=== PATIENT | female | born 1990 | race Caucasian/White ===

== ENCOUNTER → 2019-08-08 13:36 | Outpatient (CLI) | payer OTHER, SELFPAY ==
--- NOTE | 2019-08-08 13:54 | US_ITS ---
STUDY: FIRST TRIMESTER OBSTETRICAL ULTRASOUND REASON FOR EXAM: Female, 28 years old VAG BLEEDING FOR A WEEK- viability LMP: June 22, 2019. TECHNIQUE: Transvaginal TECHNICAL QUALITY: Adequate. PRIOR ULTRASOUND: None. FINDINGS: There is no demonstrated intrauterine gestational sac. There is no demonstrated yolk sac. The yolk sac measures . The placenta is non-visualized. There is no demonstrated embryo ( pole). The estimated gestation age (EGA) by LMP is 6 weeks, 5 days. The estimated date of delivery (JEFFRY) by LMP is March 28, 2020. The uterus measures 9 cm x 5.9 centimeters x 4.8 cm. The endometrium measures 9 mm. There is no demonstrated uterine fibroid. The cervix is closed. The right ovary was not visualized. The left ovary measures 2.6 cm x 2.5 cm x 1.3 cm. There is no left ovarian cyst. There is no visualized left adnexal mass or complex lesion. There is minimal fluid in the cul de sac. US/Transvaginal w/Preg US IMPRESSION: No intrauterine gestation is seen. Minimal free fluid in the cul-de-sac. Correlation with beta hCG and possible follow-up sonogram is recommended. Electronically Signed: Weston Wilkerson, at 15:59 EDT , Service support ,
[2019-08-08 16:47] LABS: hCG Titer Quant., Serum 441 mIU/mL (1-3)
== END ==
PROVIDERS: Referring Provider Obstetrics & Gynecology; Visit Provider Obstetrics & Gynecology
DX: O20.0 Threatened abortion (principal); Z3A.00 Weeks of gestation of pregnancy not specified
CPT/HCPCS: 36415; 76817; 84702; 86850; 86900; 86901

== ENCOUNTER → 2020-01-16 16:48 | Outpatient (CLI) | payer OTHER, SELFPAY ==
[2019-08-08 15:38] VITALS: BMI 25.4
[2020-01-16 17:35] LABS: hCG Titer Quant., Serum 762 mIU/mL (1-3)
== END ==
PROVIDERS: Referring Provider Obstetrics & Gynecology; Visit Provider Obstetrics & Gynecology
DX: O20.0 Threatened abortion (principal); Z3A.00 Weeks of gestation of pregnancy not specified
CPT/HCPCS: 36415; 84702

== ENCOUNTER → 2020-01-18 16:28 | Outpatient (CLI) | payer OTHER, SELFPAY ==
[2019-08-08 15:38] VITALS: BMI 25.4
[2020-01-18 18:29] LABS: hCG Titer Quant., Serum 1777 mIU/mL (1-3)
== END ==
PROVIDERS: Referring Provider Obstetrics & Gynecology; Visit Provider Obstetrics & Gynecology
DX: O20.0 Threatened abortion (principal)
CPT/HCPCS: 36415; 84702

== ENCOUNTER → 2020-02-09 16:07 | Outpatient (CLI) | payer OTHER, SELFPAY ==
[2020-02-09 14:43] VITALS: BMI 25.4
[2020-02-09 17:51] LABS: Absolute Lymphocyte Count 2.43 X10^3/uL (0.83-4.51); Absolute Neutrophil Count 7.2 X10^3/uL (2.0-7.7); Basophil# 0.03 X10^3/uL; Basophil% 0.3 % (0-1); Hematocrit 36.5 % (37-47); Lymphocyte # 2.43 X10^3/ul (4.0); Lymphocyte % 23.4 % (19-41); Mean Corp Hgb Conc 32.9 g/dL (32-36); Mean Corpuscular Hgb 29.1 pg (27.0-32.0); Mean Corpuscular Volume 88.4 fL (81-99); Mean Platelet Vol. 10.5 fl (6.2-12.0); Monocyte# 0.54 X10^3/uL; Monocyte% 5.2 % (0-10); NRBC Flagged by Analyzer 0 % (0-5); Neutrophil # 7.24 X10^3/uL (2.7-7.7); Neutrophil % 69.8 % (47-70); Platelet Count 252 K/mm3 (150-450); RBC Distribution Width CV 12.1 % (11.6-14.6); Red Blood Count 4.13 M/mm3 (4.2-5.4); White Blood Count 10.4 K/mm3 (4.4-11.0)
[2020-02-09 18:55] LABS: Amphetamine Urine VISTA NEGATIVE (<1000 ng/mL); Barbiturate Urine VISTA NEGATIVE (< 200 ng/mL); Benzodiazepine Urine VISTA NEGATIVE (< 200 ng/mL); Cocaine Urine VISTA NEGATIVE (< 300 ng/mL); Ecstacy Urine VISTA NEGATIVE (< 500 ng/mL); Methadone Urine VISTA NEGATIVE (< 300 ng/mL); PCP Urine VISTA NEGATIVE (< 25 ng/mL); THC Urine VISTA NEGATIVE (< 50 ng/mL); Vista UDS pH Range 6
[2020-02-10 15:16] LABS: HIV - WCH Non-Reactive (Nonreactive); Hepatitis B Surface Antigen Non-Reactive (Nonreactive); Hepatitis C Antibody Non-Reactive (Nonreactive); Rubella IgG 185.4 IU/mL
[2020-02-14 03:06] LABS: Chlamydia By Nucleic Acid AMP Negative (Negative)
[2020-02-14 09:43] LABS: Gonococcus By Nucleic Acid AMP Negative (Negative)
[2020-02-14 16:00] LABS: HPV APTIMA, High Risk Negative (Negative)
[2020-02-16 04:30] LABS: Rapid Plasmin Reagin (RPR) NONREACTIVE (NONREACTIVE)
== END ==
PROVIDERS: Referring Provider Obstetrics & Gynecology; Visit Provider Obstetrics & Gynecology
DX: Z34.80 Encounter for supervision of other normal pregnancy, unspecified trimester (principal); Z12.4 Encounter for screening for malignant neoplasm of cervix
CPT/HCPCS: 36415; 80307; 85025; 86592; 86703; 86762; 86803; 87086; 87088; 87340; 87491; 87591; 87624; 88175; G0145

== ENCOUNTER → 2020-06-29 13:11 | Outpatient (CLI) | payer OTHER, SELFPAY ==
[2020-05-31 10:54] VITALS: BMI 31.1
[2020-06-29 13:47] LABS: Absolute Lymphocyte Count 1.63 X10^3/uL (0.83-4.51); Absolute Neutrophil Count 7.1 X10^3/uL (2.0-7.7); Basophil# 0.02 X10^3/uL; Basophil% 0.2 % (0-1); Eosinophil# 0.06 X10^3/uL; Eosinophils% 0.6 % (0-5); Hematocrit 34.4 % (37-47); Hemoglobin 11.6 g/dL (12.0-15.0); Lymphocyte # 1.63 X10^3/ul (4.0); Lymphocyte % 17.4 % (19-41); Mean Corp Hgb Conc 33.7 g/dL (32-36); Mean Corpuscular Hgb 30.4 pg (27.0-32.0); Mean Corpuscular Volume 90.3 fL (81-99); Mean Platelet Vol. 10.5 fl (6.2-12.0); Monocyte# 0.47 X10^3/uL; NRBC Flagged by Analyzer 0 % (0-5); Neutrophil # 7.14 X10^3/uL (2.7-7.7); Neutrophil % 76.5 % (47-70); Platelet Count 209 K/mm3 (150-450); RBC Distribution Width CV 12.8 % (11.6-14.6); RBC Distribution Width SD 41.4 fl (35.1-43.9); Red Blood Count 3.81 M/mm3 (4.2-5.4); White Blood Count 9.4 K/mm3 (4.4-11.0)
[2020-06-29 14:10] LABS: Glucose Challenge Gest 1H 50g 106 mg/dL (70-140)
== END ==
PROVIDERS: Referring Provider Obstetrics & Gynecology; Visit Provider Obstetrics & Gynecology
DX: Z34.80 Encounter for supervision of other normal pregnancy, unspecified trimester (principal); Z13.1 Encounter for screening for diabetes mellitus
CPT/HCPCS: 36415; 82950; 85025; 86850; 86900; 86901

== ENCOUNTER → 2020-08-23 16:12 | Outpatient (CLI) | payer OTHER, SELFPAY ==
[2020-08-10 14:43] VITALS: BMI 32.4
[2020-08-23 14:21] VITALS: BMI 32.9
--- NOTE | 2020-08-23 16:17 | US_ITS ---
STUDY: SECOND AND THIRD TRIMESTER OBSTETRICAL ULTRASOUND - LIMITED REASON FOR EXAM: Female, 30 years old GROWTH LGA PRIOR ULTRASOUND: None. TECHNIQUE: Transabdominal FINDINGS: There is a single intrauterine fetus. The fetus is in a cephalic presentation. There is demonstrated cardiac activity with a heart rate of 140 bpm. There is a normal amniotic fluid volume. The largest amniotic fluid pocket measures 10.3 cm. The amniotic fluid index (FARRAH) is 20 cm. The placenta is posterior in location and is not low lying. There are Grade 2 placental changes. The cervix measures 3.8 cm in length and is closed. BIOMETRY: BPD: 8.8: 35 weeks, 3 days HC: 32.7: 37 weeks, 0 days AC: 35.7: 39 weeks, 4 days FL: 6.4: 33 weeks, 1 days Age by LMP: 36 weeks, 5 days. JEFFRY by LMP: 09/15/2020. age by current US: 36 weeks, 5 days. JEFFRY by current US: 09/15/2020. Estimated weight: 3223 grams, +/- 483 grams, 74th percentile. US/OB Limited With Biometrics IMPRESSION: Live intrauterine gestation with EGA of 36 weeks, 5 days and EFW of 3223 grams. Electronically Signed: Brandan Paulson MD at 17:17 EDT Tel , Service support ,
== END ==
PROVIDERS: Referring Provider Obstetrics & Gynecology; Visit Provider Obstetrics & Gynecology
DX: O26.843 Uterine size-date discrepancy, third trimester (principal); Z3A.36 36 weeks gestation of pregnancy
CPT/HCPCS: 76816; 87081

== ENCOUNTER 2020-09-21 10:03 | Inpatient (IN) | payer OTHER, SELFPAY ==
[2020-06-29 13:50] VITALS: BMI 31.6
[2020-09-20 15:04] VITALS: BMI 33.8
[2020-09-21] VITALS (17 sets, daily range): BP systolic 90–115; BP diastolic 38–75; PULSE 65–86; RESP 16–18; TEMP 36.2–37.1; O2SAT 96–100; BMI 32.3
[2020-09-21] MEDS: Lactated Ringers 1,000 ML 999 ML IV (10:35)
[2020-09-21 10:54] LABS: Absolute Lymphocyte Count 1.36 X10^3/uL (0.83-4.51); Absolute Neutrophil Count 6.4 X10^3/uL (2.0-7.7); Basophil# 0.02 X10^3/uL; Basophil% 0.2 % (0-1); Eosinophil# 0.03 X10^3/uL; Eosinophils% 0.4 % (0-5); Hematocrit 34.4 % (37-47); Hemoglobin 11.3 g/dL (12.0-15.0); Lymphocyte # 1.36 X10^3/ul (0.83-4.51); Lymphocyte % 16.4 % (19-41); Mean Corp Hgb Conc 32.8 g/dL (32-36); Mean Corpuscular Hgb 29.3 pg (27.0-32.0); Mean Corpuscular Volume 89.1 fL (81-99); Mean Platelet Vol. 10.7 fl (6.2-12.0); NRBC Flagged by Analyzer 0 % (0-5); Neutrophil # 6.35 X10^3/uL (2.7-7.7); Neutrophil % 76.8 % (47-70); Platelet Count 201 K/mm3 (150-450); RBC Distribution Width CV 13.2 % (11.6-14.6); RBC Distribution Width SD 42.3 fl (35.1-43.9); Red Blood Count 3.86 M/mm3 (4.2-5.4); White Blood Count 8.3 K/mm3 (4.4-11.0)
[2020-09-21] MEDS: Acetaminophen 500 MG Tablet 1000 MG PO ×3 (11:12→22:06)
[2020-09-21] MEDS: Lactated Ringers 1,000 ML 150 ML IV (11:36)
--- NOTE | 2020-09-21 12:03 | HP.PCM_ITS ---
- Problem List (1) 36 weeks gestation of Status: Acute Comment: electronic covid test ordered 08/14/20, RLTCS 09/17 @ 12 (2) Family history of clubfoot Status: Acute Comment: patient's father (3) History of one miscarriage Status: Acute Comment: 07/2019 (4) Hx of section Status: Acute Comment: Done at [facility]. Reports was 8cm dilated and had c- section for failed IOL. Will get ROR from [facility]. (5) Status: Acute Qualifiers: Comment: declined genetic, carrier, and AFP. anatomy nl (6) Supervision of other normal Status: Acute Comment: PRR JEFFRY 09/15/2020 boy Eliel PC: Lalo Spouse: Juan R (7) Uterine size-date discrepancy in third trimester Status: Acute Comment: growth us NL- 08/23/20 History and Physical Date of Admission: 09/21/20 Intake Vital Signs 09/20/20 Height 5 ft 2 in 09/20/20 Weight: 185 lb 09/20/20 BMI 33.8 09/20/20 BP 110/80 Intake Visit Reasons: 40 WK OB Chief Complaint: est ob Travel Rn Or Required: No Is patient in pain?: No Allergies latex Allergy (Severe, Verified 09/20/20 15:04) Hives azithromycin [From Zithromax] Adverse Reaction (Severe, Verified 09/20/20 15:04) Diarrhea Penicillins Adverse Reaction (Intermediate, Verified 09/20/20 15:04) Rash Medications calcium citrate 315 mg calcium-vitamin D3 6.25 mcg (250 unit) tablet 1 tab PO DAILY 08/08/19 [History Confirmed 09/20/20] cholecalciferol (vitamin D3) 100 mcg (4,000 unit) capsule 4,000 unit PO DAILY 08/08/19 [History Confirmed 09/20/20] vitamn-iron carb-folic acid-docusate 95 mg-1 mg-50 mg capsule cap PO 08/08/19 [History Confirmed 09/20/20] promethazine 12.5 mg tablet 12.5 mg PO TID PRN #90 tab 01/26/20 [Rx Confirmed 09/20/20] Last Menstral Period: 12/10/19 Zika: Zika virus screening: Negative : No PFSH PFSH Surgical History delivery delivered (Acute) History of wisdom tooth extraction, class II edentulism (Acute) Family History Mother Hypertension Carcinoma Grandmother Colon cancer Grandfather Heart disease Hypertension Social History number of children: 1 Smoking Status: Never smoker alcohol intake: current details: social substance use type: does not use caffeine: Yes what type of physical activity do you participate in: walking seatbelt use: always do you feel safe at home: Yes additional social history: 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 Date Name GA/Weeks Outcome Route Bth Weight Gen Labor Lgth Anesthesia Del Locatn Provider FOB Unknown 2017 Lalo 39 live - full term 9lbs 2.5oz [facility] Delivery Date: c/s at 9 cm but was not dilated long at this dilation Arely Tabor HPI 40 WK OB: Details: SCARLETT WILKERSON is a 30 year old who presents for repeat OB Visit JEFFRY Calculator Estimated Delivery Date Method Current WG Current Estimate 09/15/20 LMP (Certain) 40w 5d Other Estimates 09/18/20 Ultrasound #1 40w 2d Expected Delivery Route/Plan TOLAC by 41 weeks arrest at 8-9 cm but was not at this dilation long patient counseled regarding risks/benefits of trial of labor versus repeat . ACOG/uptodate education given to patient. 63 % likelihood of success per calculator TOLAC consent form signed: 05/31 Labor Preferences- CB/BF classes: done labor support person: Juan R labor intervention preferences: desires tub during labor, appreciates discussion and background information on labor interventions, open to augmentation but possibly not induction. pain management options preferred: open to epidural, open to having placed but not dosed if needed cut cord/dad catch: [] : [] PP control planned: [] discussed possible routes of delivery and associated risks: [] special requests: [] Specific Issue/Plans flu vaccine: decline tdap vaccine: given rhogam: na LARC form signed: declined movement and labor precautions reviewed. Problem list reviewed and updated with the most current plan of care details and appropriate orders placed. Relevant counseling for the gestational age provided. Continue routine care and follow up unless otherwise noted in visit notes/problem list details Initial Weight: 151 lb Date EGA Weight BP Urine Prot Glucose FHR FuHt Pres Dilation Effaced St Visit Note 02/09/20 8w 5d 151 lb (+0 oz) 170 GP - CRL 12mm consistent with LMP. Some brown spotting. Denies cramping. 03/09/20 12w 6d 160 lb (+9 lb) 100/70 Negative Negative 160 Sm- no vb lof good fm no regular ctx. 04/06/20 16w 6d 164 lb 2 oz (+13 lb 2 oz) 120/70 Negative Negative 150 GP - no cramping or bleeding. Anatomy scan ordered. GP - no cramping or bleeding. Anatomy scan ordered. Answered questions regarding COVID in . 04/30/20 20w 2d 167 lb (+16 lb) 102/60 Negative Negative 150 SM- no vb lof good fm no reuglar ctx 05/31/20 24w 5d 170 lb 8 oz (+19 lb 8 oz) 120/82 Negative Negative 145 24 GP - no LOF, VB, DFM, ctx. Discussed TOLAC. Consent signed. 06/29/20 28w 6d 173 lb (+22 lb) 132/68 Negative Negative 140 29 SM- no vb lof good fm no regular ctx. cbc gct. tdap discussed. preference discussed 07/13/20 30w 6d 174 lb 8 oz (+23 lb 8 oz) 124/72 Negative Negative 145 30 GP - no LOF, VB, DFM, ctx. Discussed labor preferences. Keeping an open mind. 07/27/20 32w 6d 176 lb (+25 lb) 124/68 Negative Negative 145 33 SM- no vb lof good fm no regular ctx 08/10/20 34w 6d 177 lb 6 oz (+26 lb 6 oz) 100/60 Trace Negative 145 35 37 Sm- no vb lof good fm no regular ctx 08/23/20 36w 5d 180 lb 4 oz (+29 lb 4 oz) 120/82 Negative Negative 145 37 Cephalic 0 40 -3 GP - no LOF, VB, DFM, ctx . Having growth US today. Will discuss vs. TOLAC pending growth results. 08/31/20 37w 6d 180 lb (+29 lb) 130/74 Negative Negative 150 38 Cephalic 1 50 -3 GP - no LOF, VB, DFM, ctx . Plan RCD at 40 weeks unless spontaneous labor. 09/06/20 38w 5d 182 lb (+31 lb) 116/68 Trace Negative 146 39 Cephalic 1 50 -3 MH-FARRAH per SM WNL. Good FM. No VB, LOF. 09/14/20 39w 6d 186 lb (+35 lb) 134/68 Negative Negative 140 40 Cephalic 1 50 -3 SM- no vb lof good fm no regular ctx SM- no vb lof good fm no regular ctx. extensive counseling provided discussing RLTCS if no spontaneous labor, wants to proceed with 41 week delivery instead of 40 09/20/20 40w 5d 185 lb (+34 lb) 110/80 Negative Negative ACOG First Trimester First Trimester: Discussed Diagnostics Diagnostics Diagnostics Blood Type O POSITIVE 06/29/20 Antibody Screen NEGATIVE 06/29/20 Glucose 1 Hr 50 gm 106 mg/dL (70-140) 06/29/20 Hgb 11.6 g/dL (12.0-15.0) L 06/29/20 Hct 34.4 % (37-47) L 06/29/20 Details: HIV: Urine Culture: Sequential Screen: NIPT Screen: Results POC Urinalysis 2 Dip (Clinic) Office Urine Glucose Negative Last Edit by Linn Lopez on 09/20/20 15:1 0 Office Urine Protein Negative Last Edit by Linn Lopez on 09/20/20 15:1 0 Assessment & Plan Problems 1. Supervision of other normal Z34.80 PRR JEFFRY 09/15/2020 boy Eliel PC: Lalo Spouse: Juan R 2. Z34.90 declined genetic, carrier, and AFP. anatomy nl 3. History of one miscarriage Z87.59 07/2019 4. Family history of clubfoot Z82.69 patient's father 5. Hx of section Z98.891 Done at [facility]. Reports was 8cm dilated and had for failed IOL. Will get ROR from [facility]. 6. Uterine size-date discrepancy in third trimester O26.843 growth us NL- 08/23/20 7. 36 weeks gestation of Z3A.36 electronic covid test ordered 08/14/20, RLTCS 09/17 @ 12 UPDATE- I have seen the patient and performed any clinically relevant updates to the history and physical exam. Rebecca Perkins MD
[2020-09-21] MEDS: Sodium Citrate/Citric Acid 30 ML UDC PO (12:24)
[2020-09-21] MEDS: Cefazolin 2 GM in 0.9% Normal Saline 100 ML IV (12:34)
[2020-09-21] MEDS: Oxytocin 30 units/NS 500 ml 30 UNITS/500 ML IV.SOLN 167 UNITS IV (13:40)
[2020-09-21] MEDS: Ketorolac 30 MG/ML Syringe IV ×2 (14:05→19:52)
--- NOTE | 2020-09-21 16:08 | PCM.OPRPT ---
Problem List (1) 36 weeks gestation of Status: Acute Comment: electronic covid test ordered 08/14/20, RLTCS 09/17 @ 12 (2) Family history of clubfoot Status: Acute Comment: patient's father (3) History of one miscarriage Status: Acute Comment: 07/2019 (4) Hx of section Status: Acute Comment: Done at [facility]. Reports was 8cm dilated and had for failed IOL. Will get ROR from [facility]. (5) Status: Acute Qualifiers: Comment: declined genetic, carrier, and AFP. anatomy nl (6) Supervision of other normal Status: Acute Comment: PRR JEFFRY 09/15/2020 boy Eliel PC: Lalo Spouse: Juan R (7) Uterine size-date discrepancy in third trimester Status: Acute Comment: growth us NL- 08/23/20 Delivery Classification: Scheduled Final EJFFRY: 09/15/20 Gestational age: 40 Weeks and 6 Days house steward/stewardess: Nathan Jimenez Type of Anesthesia:: Spinal Date of Procedure: 09/21/20 Pre-Operative Diagnosis: Term , history of Post-Operative Diagnosis: Same Indications: 30-year-old at 40 weeks gestation admitted for repeat . Risks, benefits, indications, and alternatives to the procedure were discussed with patient and she voiced understanding and agreed to proceed. Indications for : Repeat Elective Description of Procedure: The patient is a at 40 weeks gestation who presented for repeat . Spinal anesthesia was placed without difficulty. Weaver catheter was placed. The patient was placed in the dorsal supine position with leftward tilt. Patient was prepped and draped in the normal sterile fashion. Pfannenstiel skin incision was made with the scalpel and carried through to the underlying layer of fascia with the scalpel. Fascia was nicked in the midline and the incision extended laterally. The rectus bellies were dissected off superiorly and inferiorly with out complication both sharply and bluntly. The peritoneum was entered digitally. The incision was stretched and a low transverse uterine incision was made with the scalpel. The infant's head was delivered atraumatically followed by the anterior and posterior shoulders without complication the rest of the delivered. The cord was clamped and cut and the infant was handed off to awaiting nurse. The placenta was delivered spontaneously immediately following and was noted to be intact and have a three-vessel cord. The uterus was exteriorized cleared of all clots and debris, and the incision was closed in a double layer closure using #1 Monocryl. The ovaries and fallopian tubes were noted to be within normal limits. The uterus was returned to the maternal abdomen and gutters were cleared of all clots and debris. The peritoneum was closed with 3-0 Monocryl in a running fashion. Gloves were changed prior to fascial closure. Fascia was closed with 0 PDS in a running fashion. Subcutaneous tissue was copiously irrigated and the skin was closed with 3-0 Monocryl in a subcuticular fashion. Mepilex dressing was applied without complication. Patient was taken to recovery in stable condition. It was discussed with the patient that based on the clinical information obtained during this encounter, combined with her history, at this time I would recommend C-sections for future deliveries if further pregnancies are desired unless her next baby is noted to be significantly smaller. Amniotic Membrane Rupture Type: Artificial Amniotic Fluid Description: Clear Placenta Disposition: [facility] Specimen(s) sent to pathology: Placenta Drain: Weaver to straight drain Fluids Replaced: 1000 Cord Entanglement: None Cord Vessel Description: 3 Vessels Esitmated Blood Loss (ml): 900 Gender: Male (1 minute): 8 (5 minute): 9 Delayed cord clamping: Yes Antibiotic Given: Ancef 2 grams IV x1 Pt instructed on risks of surgery: Bleeding, Anesthesia Risks, Infection Complications: None - Admit VTE Documentation VTE Present on Admission: No VTE Mechan Device Prophylaxis: SCD's VTE Pharm Prophylaxis ordered?: No Multi Select Codes - Urinary/Genital Urinary/Genital CPT Codes: 22723 Delivery [facility]
--- NOTE | 2020-09-21 16:12 | DCINST_ITS ---
Discharge Diet: No Restrictions Discharge Activity: May Not Drive - for 2 weeks or while taking narcotic pain meds., May Shower, May Take a Tub Bath - in 7 days. May resume sexual activity in: 4-6 weeks Lifting Restrictions: 20 pounds Additional Activity Instructions:: Nothing in the vagina for 4-6 weeks. You may return to work/school in 6 weeks. Call your doctor if your incision/area has: Continuous Slow Oozing, Sudden Increased Bleeding, Increased Pain/ Swelling, Increased Redness, Foul Smelling Discharge Call your doctor if you observe: Fever of 101 or Higher Suture Line Care: Avoid Pulling/Pushing, Avoid Pinching/Bending Additional Instructions: If you experience any of the following, contact your healthcare provider. * Bleeding that soaks a pad every hour for 2 hours * Fever 100.4 or higher * Unrelieved incision or abdominal pain * Swelling, redness, discharge or bleeding from your incision or episiotomy site * Your incision begins to separate * Problems urinating (including inability to urinate or burning while urinating). * Visual changes * Severe headache * Flu-like symptoms * Pain or redness in one of both of your breasts * Pain, warmth, tenderness or swelling in your legs, especially the calf area * Frequent nausea and vomiting * Symptoms of depression or anxiety If you experience any of the following, call 911 or go to the nearest Emergency Room. * Chest pain * Problems breathing * Seizure activity * Partial or complete paralysis of a body part, slurred speech, weakness or drooping of the face, or a sudden inability to walk or hold your balance Allergies/Adverse Reactions: Allergies latex Allergy (Severe, Verified 09/21/20 10:39) Hives Penicillins Allergy (Intermediate, Verified 09/21/20 10:39) Rash azithromycin [From Zithromax] Adverse Reaction (Severe, Verified 09/21/20 10:39) Diarrhea Medications to take at Discharge calcium citrate 315 mg calcium-vitamin D3 6.25 mcg (250 unit) tablet 1 tab PO DAILY 08/08/19 cholecalciferol (vitamin D3) 100 mcg (4,000 unit) capsule 4,000 unit PO DAILY 08/08/19 vitamn-iron carb-folic acid-docusate 95 mg-1 mg-50 mg capsule 1 cap PO DAILY 08/08/19 Follow-Up: Call to make an appointment with your doctor for an incision check in 1-2 weeks. You will also need a 6 week post- follow up appointment. Test results from this visit will be discussed in further detail at your follow- up appointment, if applicable. Primary Care Physician: SHY WASHINGTON [Other]
[2020-09-21] MEDS: Lactated Ringers 1,000 ML 100 ML IV (17:32)
[2020-09-22 01:45] VITALS: BP 105/43; PULSE 79; RESP 16; TEMP 36.7; O2SAT 98
[2020-09-22] MEDS: Ketorolac 30 MG/ML Syringe IV (02:12)
[2020-09-22 04:17] VITALS: BP 87/42; PULSE 62; RESP 16; TEMP 36.7
[2020-09-22] MEDS: Acetaminophen 500 MG Tablet 1000 MG PO ×4 (04:21→23:50)
[2020-09-22 06:12] LABS: Hematocrit 28.1 % (37-47); Mean Corpuscular Hgb 28.9 pg (27.0-32.0); Mean Corpuscular Volume 90.4 fL (81-99); Mean Platelet Vol. 10.1 fl (6.2-12.0); Platelet Count 163 K/mm3 (150-450); RBC Distribution Width CV 13.3 % (11.6-14.6); RBC Distribution Width SD 43.6 fl (35.1-43.9); Red Blood Count 3.11 M/mm3 (4.2-5.4); White Blood Count 9.7 K/mm3 (4.4-11.0)
[2020-09-22 08:22] VITALS: BP 90/63; PULSE 67; RESP 16; TEMP 36.3
[2020-09-22] MEDS: Naproxen 250 MG Tablet 500 MG PO ×3 (08:37→22:29)
[2020-09-22] MEDS: Senna/Docusate Sodium 1 Tablet PO (10:14)
--- NOTE | 2020-09-22 10:17 | PCM.PN.OB ---
Patient Problems: Active and Suspected Problems (Last Reviewed 09/20/20 @ 15:04 by Linn Lopez) 36 weeks gestation of (Acute) electronic covid test ordered 08/14/20, RLTCS 09/17 @ 12 Uterine size-date discrepancy in third trimester (Acute) growth us NL- 08/23/20 Hx of section (Acute) Done at [facility]. Reports was 8cm dilated and had for failed IOL. Will get ROR from [facility]. Family history of clubfoot (Acute) patient's father History of one miscarriage (Acute) 07/2019 (Acute) declined genetic, carrier, and AFP. anatomy nl Supervision of other normal (Acute) PRR JEFFRY 09/15/2020 boy Eliel PC: Lalo Spouse: Juan R Subjective: Patient doing well without complaints. Tolerating PO. Ambulating and voiding without difficulty. Breast feeding well. Denies chest pain, shortness of breath, calf pain/swelling, fevers, chills, lightheadedness. Objective: Laboratory Tests 09/22/20 09/21/20 09/21/20 Range/Units 06:05 10:35 10:35 WBC 9.7 8.3 (4.4-11.0) K/mm3 RBC 3.11 L 3.86 L (4.2-5.4) M/mm3 Hgb 9.0 L 11.3 L (12.0-15.0) g/dL Hct 28.1 L 34.4 L (37-47) % MCV 90.4 89.1 (81-99) fL MCH 28.9 29.3 (27.0-32.0) pg MCHC 32.0 32.8 (32-36) g/dL RDW Std Deviation 43.6 42.3 (35.1-43.9) fl RDW Coeff of Mary 13.3 13.2 (11.6-14.6) % Plt Count 163 201 (150-450) K/mm3 MPV 10.1 10.7 (6.2-12.0) fl Immature Gran % (Auto) 0.200 (0.0-0.9) % Neut % (Auto) 76.8 H (47-70) % Lymph % (Auto) 16.4 L (19-41) % [place] % (Auto) 6.0 (0-10) % Eos % (Auto) 0.4 (0-5) % Baso % (Auto) 0.2 (0-1) % Absolute Neuts (auto) 6.4 (2.0-7.7) X10^3/uL Absolute Lymphs (auto) 1.36 (0.83-4.51) X10^3/uL Nucleated RBC % 0 (0-5) % Blood Type O POSITIVE Antibody Screen NEGATIVE - Physical Exam Vitals/I&O's: Vital Signs Temp Pulse Resp BP Pulse Ox 97.3 F L 67 16 90/63 98 09/22/20 08:22 09/22/20 08:22 09/22/20 08:22 09/22/20 08:22 09/22/20 01:45 Oxygen Delivery Method Room Air Weight: 182 lb 12.211 oz Body Mass Index (BMI) 32.3 Intake and Output for Last 24 Hours 09/20/20 09/21/20 09/22/20 23:59 23:59 23:59 Intake Total 3660.67 / 3660.67 Output Total 400 / 400 650 / 650 Balance 3260.67 / 3260.67 -650 / -650 General: Alert, Oriented x3, Cooperative, No apparent distress, Well developed, Well nourished HEENT: Atraumatic, PERRLA, EOMI, Normocephalic Neck: Supple, No JVD Lungs: Normal air movement Cardiovascular: Regular rate Abdomen: Soft, Non Tender, Non-Distended, - - fundus firm, incision c/d/i Extremities: No edema, No Calf Tenderness Neurological: Cranial nerves II-XII grossly intact, Neuro grossly intact Psych/Mental Status: Normal Affect, Appropriate Microbiology Past 72 Hours 09/21/20 11:50 Mucosa - Nose SARS-CoV-2 Antigen (Rapid) - Final Laboratory Results 09/21/20 10:35: WBC 8.3, RBC 3.86 L, Hgb 11.3 L, Hct 34.4 L, MCV 89.1, MCH 29.3, MCHC 32.8, RDW Std Deviation 42.3, RDW Coeff of Mary 13.2, Plt Count 201, MPV 10.7, Immature Gran % (Auto) 0.200, Neut % (Auto) 76.8 H, Lymph % (Auto) 16.4 L, [place] % (Auto) 6.0, Eos % (Auto) 0.4, Baso % (Auto) 0.2, Absolute Neuts (auto) 6.4, Absolute Lymphs (auto) 1.36, Nucleated RBC % 0 09/21/20 10:35: Blood Type O POSITIVE, Antibody Screen NEGATIVE 09/22/20 06:05: WBC 9.7, RBC 3.11 L, Hgb 9.0 L, Hct 28.1 L, MCV 90.4, MCH 28.9, MCHC 32.0, RDW Std Deviation 43.6, RDW Coeff of Mary 13.3, Plt Count 163, MPV 10.1 Current Medications Acetaminophen (Acetaminophen 500 Mg Tablet) 1,000 mg PO Q6H COUNTS INCLUDE 234 BEDS AT THE [facility] Last Admin: 09/22/20 10:15 Dose: 1,000 mg Documented by: Bisacodyl (Bisacodyl 10 Mg Suppository) 10 mg RC UD PRN PRN Reason: If no BM Hydrocortisone (Hydrocortisone 2.5% Crm) 1 applic TOPICAL TID PRN PRN; Protocol PRN Reason: Discomfort Lactated Ringer's () 1,000 mls @ 100 mls/hr IV .Q10H COUNTS INCLUDE 234 BEDS AT THE [facility] Last Admin: 09/22/20 02:22 Dose: Not Given Documented by: Ketorolac Tromethamine (Ketorolac 30 Mg/Ml Syringe) 30 mg IV Q6H COUNTS INCLUDE 234 BEDS AT THE [facility] Stop: 09/22/20 14:01 Last Admin: 09/22/20 08:21 Dose: Not Given Documented by: Methylergonovine Maleate (Methylergonovine 0.2 Mg/Ml Ampul) 0.2 mg IM X1 PRN PRN Reason: Uterine Atony Naproxen (Naproxen 250 Mg Tablet) 500 mg PO Q8 COUNTS INCLUDE 234 BEDS AT THE [facility] Last Admin: 09/22/20 08:37 Dose: 500 mg Documented by: Ondansetron HCl (Ondansetron 4 Mg/2 Ml Vial) 4 mg IV Q4H PRN PRN PRN Reason: Nausea Oxycodone HCl (Oxycodone 5 Mg Tablet) 5 - 10 mg PO Q4H PRN PRN PRN Reason: Pain Score 4-10 Prochlorperazine Edisylate (Prochlorperazine 10 Mg/2 Ml Vial) 10 mg IV Q6H PRN PRN PRN Reason: NAUSEA Senna/Docusate Sodium (Senna/Docusate Sodium 1 Tablet) 0 tablet PO DAILY YADY Last Admin: 09/22/20 10:14 Dose: 1 tablet Documented by: Simethicone (Simethicone 80 Mg Tablet) 80 mg PO PCHS PRN PRN Reason: Indigestion/stomach pain Sodium Chloride (0.9% Saline Lock 10 Ml Syringe) 5 - 15 ml IV UD PRN PRN Reason: SALINE FLUSH Medical Necessity - Tobacco Use Smoking Status: Never smoker Assessment/Plan All Active Problems (Last Reviewed 09/20/20 @ 15:04 by Linn Lopez) 36 weeks gestation of (Acute) Uterine size-date discrepancy in third trimester (Acute) Hx of section (Acute) Family history of clubfoot (Acute) History of one miscarriage (Acute) (Acute) Supervision of other normal (Acute) FARRAH (amniotic fluid index) borderline low (Resolved) s/p LTCS PPD # 1 1. routine post care 2. breast feeding- support given 3. rh positive 4. rubella immune 5. acute blood loss anemia - asymptomatic
[2020-09-22 13:06] VITALS: BP 85/41; PULSE 66; RESP 18; TEMP 36.6
[2020-09-22 13:13] VITALS: BP 93/49
[2020-09-22] MEDS: oxyCODONE 5 MG Tablet PO (20:04)
[2020-09-22 20:06] VITALS: BP 91/42; PULSE 72; RESP 18; TEMP 36.5; O2SAT 94
[2020-09-23 01:10] VITALS: BP 95/45; PULSE 67; RESP 18
[2020-09-23] MEDS: Naproxen 250 MG Tablet 500 MG PO (05:52)
[2020-09-23] MEDS: Acetaminophen 500 MG Tablet 1000 MG PO ×2 (05:53→11:32)
[2020-09-23 07:43] VITALS: BP 90/56; PULSE 70; RESP 16; TEMP 36.2
--- NOTE | 2020-09-23 09:08 | PCM.PN.OB ---
Patient Problems: Active and Suspected Problems (Last Reviewed 09/20/20 @ 15:04 by Linn Lopez) 36 weeks gestation of (Acute) electronic covid test ordered 08/14/20, RLTCS 09/17 @ 12 Uterine size-date discrepancy in third trimester (Acute) growth us NL- 08/23/20 Hx of section (Acute) Done at [facility]. Reports was 8cm dilated and had for failed IOL. Will get ROR from [facility]. Family history of clubfoot (Acute) patient's father History of one miscarriage (Acute) 07/2019 (Acute) declined genetic, carrier, and AFP. anatomy nl Supervision of other normal (Acute) PRR JEFFRY 09/15/2020 boy Eliel PC: Lalo Spouse: Juan R Subjective: Patient doing well without complaints. Tolerating PO. Ambulating and voiding without difficulty. Breast feeding well. Denies chest pain, shortness of breath, calf pain/swelling, fevers, chills, lightheadedness. Objective: Laboratory Tests 09/22/20 09/21/20 09/21/20 Range/Units 06:05 10:35 10:35 WBC 9.7 8.3 (4.4-11.0) K/mm3 RBC 3.11 L 3.86 L (4.2-5.4) M/mm3 Hgb 9.0 L 11.3 L (12.0-15.0) g/dL Hct 28.1 L 34.4 L (37-47) % MCV 90.4 89.1 (81-99) fL MCH 28.9 29.3 (27.0-32.0) pg MCHC 32.0 32.8 (32-36) g/dL RDW Std Deviation 43.6 42.3 (35.1-43.9) fl RDW Coeff of Mary 13.3 13.2 (11.6-14.6) % Plt Count 163 201 (150-450) K/mm3 MPV 10.1 10.7 (6.2-12.0) fl Immature Gran % (Auto) 0.200 (0.0-0.9) % Neut % (Auto) 76.8 H (47-70) % Lymph % (Auto) 16.4 L (19-41) % [place] % (Auto) 6.0 (0-10) % Eos % (Auto) 0.4 (0-5) % Baso % (Auto) 0.2 (0-1) % Absolute Neuts (auto) 6.4 (2.0-7.7) X10^3/uL Absolute Lymphs (auto) 1.36 (0.83-4.51) X10^3/uL Nucleated RBC % 0 (0-5) % Blood Type O POSITIVE Antibody Screen NEGATIVE - Physical Exam Vitals/I&O's: Vital Signs Temp Pulse Resp BP Pulse Ox 97.2 F L 70 16 90/56 L 94 09/23/20 07:43 09/23/20 07:43 09/23/20 07:43 09/23/20 07:43 09/22/20 20:06 Oxygen Delivery Method Room Air Weight: 182 lb 12.211 oz Body Mass Index (BMI) 32.3 Intake and Output for Last 24 Hours 09/21/20 09/22/20 09/23/20 23:59 23:59 23:59 Intake Total 3660.67 / 3660.67 Output Total 400 / 400 650 / 650 Balance 3260.67 / 3260.67 -650 / -650 General: Alert, Oriented x3, Cooperative, No apparent distress, Well developed, Well nourished HEENT: Atraumatic, PERRLA, EOMI, Normocephalic Neck: Supple, No JVD Lungs: Normal air movement Cardiovascular: Regular rate Abdomen: Soft, Non Tender, Non-Distended, - - fundus firm, incision c/d/i Extremities: No edema, No Calf Tenderness Neurological: Cranial nerves II-XII grossly intact, Neuro grossly intact Psych/Mental Status: Normal Affect, Appropriate Microbiology Past 72 Hours 09/21/20 11:50 Mucosa - Nose SARS-CoV-2 Antigen (Rapid) - Final Current Medications Acetaminophen (Acetaminophen 500 Mg Tablet) 1,000 mg PO Q6H YADY Last Admin: 09/23/20 05:53 Dose: 1,000 mg Documented by: Bisacodyl (Bisacodyl 10 Mg Suppository) 10 mg RC UD PRN PRN Reason: If no BM Hydrocortisone (Hydrocortisone 2.5% Crm) 1 applic TOPICAL TID PRN PRN; Protocol PRN Reason: Discomfort Methylergonovine Maleate (Methylergonovine 0.2 Mg/Ml Ampul) 0.2 mg IM X1 PRN PRN Reason: Uterine Atony Naproxen (Naproxen 250 Mg Tablet) 500 mg PO Q8 [facility] Last Admin: 09/23/20 05:52 Dose: 500 mg Documented by: Ondansetron HCl (Ondansetron 4 Mg/2 Ml Vial) 4 mg IV Q4H PRN PRN PRN Reason: Nausea Oxycodone HCl (Oxycodone 5 Mg Tablet) 5 - 10 mg PO Q4H PRN PRN PRN Reason: Pain Score 4-10 Last Admin: 09/22/20 20:04 Dose: 5 mg Documented by: Prochlorperazine Edisylate (Prochlorperazine 10 Mg/2 Ml Vial) 10 mg IV Q6H PRN PRN PRN Reason: NAUSEA Senna/Docusate Sodium (Senna/Docusate Sodium 1 Tablet) 0 tablet PO DAILY [facility] Last Admin: 09/22/20 10:14 Dose: 1 tablet Documented by: Simethicone (Simethicone 80 Mg Tablet) 80 mg PO PCHS PRN PRN Reason: Indigestion/stomach pain Sodium Chloride (0.9% Saline Lock 10 Ml Syringe) 5 - 15 ml IV UD PRN PRN Reason: SALINE FLUSH Medical Necessity - Tobacco Use Smoking Status: Never smoker Assessment/Plan All Active Problems (Last Reviewed 09/20/20 @ 15:04 by Linn Lopez) 36 weeks gestation of (Acute) Uterine size-date discrepancy in third trimester (Acute) Hx of section (Acute) Family history of clubfoot (Acute) History of one miscarriage (Acute) (Acute) Supervision of other normal (Acute) FARRAH (amniotic fluid index) borderline low (Resolved) s/p LTCS PPD #2 1. routine post care 2. breast feeding- support given 3. rh positive 4. rubella immune
[2020-09-23 11:19] VITALS: BP 94/47; PULSE 72; RESP 18; TEMP 37
[2020-09-23] MEDS: Senna/Docusate Sodium 1 Tablet PO (11:32)
== END 2020-09-23 13:10 | disposition home or self-care (01) | DRG 787 ==
PROVIDERS: Admitting Provider Obstetrics & Gynecology; Referring Provider Obstetrics & Gynecology; Visit Provider Obstetrics & Gynecology
PROC: 10D00Z1 Extraction of Products of Conception, Low, Open Approach (ICD-10-PCS; CPT 59514; principal; 2020-09-21 11:45)
DX: O34.211 Maternal care for low transverse scar from previous cesarean delivery (principal); D62 Acute posthemorrhagic anemia; O99.02 Anemia complicating childbirth; N85.8 Other specified noninflammatory disorders of uterus; Z3A.40 40 weeks gestation of pregnancy; Z37.0 Single live birth; Z87.59 Personal history of other complications of pregnancy, childbirth and the puerperium
CPT/HCPCS: 85025; 85027; 86850; 86900; 86901; 87426; 94762; 99218; 99251; J7120; G0378; G0463; J2405